=== PATIENT | female | born 1985 | race Two or more races ===

== ENCOUNTER 2020-07-23 05:13 | Emergency (ER) | payer OTHER ==
[2020-07-23 05:38] VITALS: BMI 26.6
[2020-07-23] MEDS ORDERED: ACETAMINOPHEN 1000 MG/100 ML VIAL (NON FORMULARY) IVPB ONE (05:59)
[2020-07-23] MEDS ORDERED: ONDANSETRON 4 MG/2 ML VIAL IVPUSH ONE (05:59)
[2020-07-23] MEDS ORDERED: morphine CARPU-JECT 2 MG/1 ML DISP.SYRIN IVPUSH ONE (05:59)
[2020-07-23] MEDS ORDERED: ONDANSETRON 4 MG/2 ML VIAL ONE (06:03)
[2020-07-23] MEDS ORDERED: ACETAMINOPHEN INJECTION 100 ML IVPB ONE (06:03)
[2020-07-23] MEDS ORDERED: MORPHINE SULFATE 2 MG/ML VIAL ONE (06:03)
[2020-07-23 06:34] LABS: EPI CELLS 12 /uL (0-25.1); HYALINE CASTS 3 /uL (0-3.1); URINE APPEARANCE CLOUDY; URINE BACTERIA 9 /uL (0-1359); URINE BILIRUBIN NEGATIVE (NEGATIVE); URINE COLOR YELLOW; URINE GLUCOSE (UA) NEGATIVE (NEGATIVE); URINE KETONE NEGATIVE (NEGATIVE); URINE LEUK ESTERASE NEGATIVE (NEGATIVE); URINE NITRITE NEGATIVE (NEGATIVE); URINE PROTEIN NEGATIVE (NEGATIVE); URINE RBC 31 /uL (0-23.9); URINE UROBILINOGEN 0.2 mg/dL (0.2-1.0); URINE WBC 7 /uL (0-25.8)
[2020-07-23 06:35] LABS: BASO % 0.2 % (0-2.0); HEMATOCRIT 36.3 % (32.4-45.2); HEMOGLOBIN 12.1 GM/dL (10.7-15.3); MCHC 33.2 g/dl (32.0-36.0); MEAN CELL VOLUME 81.2 fl (80-96); MEAN PLT VOLUME 7.8 fl (7.5-11.1); MONO % 1.7 % (3.8-10.2); NEUT % 90.1 % (42.8-82.8); PLATELET COUNT 219 K/MM3 (134-434); RBC 4.47 M/mm3 (3.60-5.2); RDW 14.3 % (11.6-15.6); WHITE BLOOD COUNT 7.7 K/mm3 (4.0-10.0)
[2020-07-23 07:09] LABS: POTASSIUM 3.6 mmol/L (3.5-5.1)
[2020-07-23 07:13] LABS: ALBUMIN 4.2 g/dl (3.4-5.0); BLOOD UREA NITROGEN 10.2 mg/dL (7-18); CALCIUM 9.2 mg/dL (8.5-10.1)
[2020-07-23 07:17] LABS: CREATININE 0.8 mg/dL (0.55-1.3)
[2020-07-23 07:18] LABS: BILIRUBIN,TOTAL 0.6 mg/dL (0.2-1); TOT PROT 7.6 g/dl (6.4-8.2)
[2020-07-23 08:05] LABS: PROTHROMBIN TIME (PATIENT) 12.3 SEC (9.7-13.0)
[2020-07-23] MEDS ORDERED: morphine CARPU-JECT 4 MG/1 ML DISP.SYRIN IVPUSH ONE ×3 (08:43→11:42)
[2020-07-23] MEDS ORDERED: morphine SULFATE 4 MG/ML VIAL ONE ×4 (08:46→15:50)
[2020-07-23 14:39] VITALS: TEMP 98.6
[2020-07-23] MEDS ORDERED: morphine SULFATE 4 MG/ML VIAL IVPUSH ONE (15:46)
[2020-07-23 16:02] VITALS: PULSE 69
[2020-07-23] MEDS ORDERED: LACTATED RINGERS SOLUTION 1000 ML INFUS.BAG IV ONE (16:46)
[2020-07-23 18:12] VITALS: BP 134/97
== END 2020-07-23 20:15 | disposition short-term general hospital (02) ==
LOC: JER 05:13
PROC: 3E033NZ Introduction of Analgesics, Hypnotics, Sedatives into Peripheral Vein, Percutaneous Approach (ICD-10-PCS; principal; 2020-07-23)
PROC: 3E033GC Introduction of Other Therapeutic Substance into Peripheral Vein, Percutaneous Approach (ICD-10-PCS; 2020-07-23)
DX: R10.9 Unspecified abdominal pain (principal)
CPT/HCPCS: 36415; 74177-TC; 76830-TC; 80053; 81003; 84703; 85025; 85610; 85730; 86850; 86900; 86901; 87086; 99285-25; C9803; J0131; Q9967; U0003